=== PATIENT | female | born 1935 | race Caucasian/White ===

== ENCOUNTER 2017-11-13 12:42 | Emergency (ER) | payer OTHER ==
[~2017-11-13] VITALS: Ht 154.9 cm; Wt 80.4 kg
[2017-11-13 12:45] VITALS: TEMP 36.7; Ht 154.9 cm; Wt 80.4 kg
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
--- NOTE | 2017-11-13 13:49 | EMERGENCY ROOM VISIT NOTE ---
ED Visit Note First contact with patient: 13:02 The patient was seen and examined with Dr. Krista SARMIENTO. I agree with the history, physical and findings. Please see the note for dispositions and details.
[2017-11-13 13:56] LABS: BASO ABS # 0.06 K/uL (0-0.2); EOS % 2.2 %; EOS ABS # 0.13 K/uL (0-0.5); HEMATOCRIT 43.4 % (37-47); HEMOGLOBIN 15.5 g/dL (12.0-16.0); IG# 0.02 K/uL (0.00-0.02); LYMPH % 18.8 %; LYMPH ABS # 1.12 K/uL (1.2-3.4); MEAN CELL VOLUME 89.3 fL (80-100); MEAN CORPUSCULAR HEMOGLOBIN 31.9 pg (25-34); MEAN CORPUSCULAR HGB CONC 35.7 g/dl (32-36); MEAN PLATELET VOLUME 9.6 fL (7.4-10.4); MONO % 7.1 %; MONO ABS # 0.42 K/uL (0.11-0.59); NEUT % 70.6 %; PLATELET COUNT 227 K/uL (130-400); RED CELL DISTRIBUTION WIDTH CV 12.8 % (11.5-14.5); RED CELL DISTRIBUTION WIDTH SD 41.4 fL (36.4-46.3); WHITE BLOOD COUNT 5.95 K/uL (4.8-10.8)
--- NOTE | 2017-11-13 14:08 | DIAGNOSTIC IMAGING REPORT ---
R KNEE 3 VIEWS CLINICAL HISTORY: 82 years-old Female presenting with Knee Pain on Ambulation. TECHNIQUE: Frontal, lateral, and sunrise views of the right knee were obtained. COMPARISON: None. FINDINGS: Knee joint congruent though there is valgus alignment at the knee. Significant lateral joint space loss with near [id number] appearance and subchondral sclerosis. Tricompartmental osteophytosis. Moderate knee joint effusion. Osteopenia suspected. This limits evaluation for nondisplaced fracture. Degenerative related lateral subluxation of the patella. No acute fracture or acute malalignment. Atherosclerosis. IMPRESSION: 1. Tricompartmental degenerative changes most severe in the lateral compartment. 2. Moderate knee joint effusion. 3. Allowing for osteopenia, no acute osseous injury. Electronically signed by: Chuck Jimenez M.D. 11/13/2017 2:07 PM Dictated Date/Time: 11/13/2017 2:05 PM
[2017-11-13 14:15] LABS: CALCIUM 8.7 mg/dl (8.5-10.1); CREATININE 1.03 mg/dl (0.60-1.20); POTASSIUM 4.1 mmol/L (3.5-5.1); URIC ACID 5.6 mg/dl (2.6-7.2)
[2017-11-13 15:37] VITALS: PULSE 84; O2SAT 100
[2017-11-13 15:41] VITALS: BP 148/86
== END 2017-11-13 15:44 | disposition home or self-care (01) ==
LOC: C.EDB 12:46 → C.EDA 15:44
DX: M17.11 Unilateral primary osteoarthritis, right knee (principal)

== ENCOUNTER 2021-10-22 11:58 | Inpatient (IN) ==
[2021-10-22] MEDS ORDERED: HALOPERIDOL LACTATE 5 MG/ML 1 ML VIAL IV STA (12:07)
[2021-10-22] MEDS ORDERED: LORazepam 2 MG/1 ML VIAL IV STA (12:07)
--- NOTE | 2021-10-22 12:09 | Emergency Department Note ---
Impression & Plan Acute hyponatremia ADMIT ED Provider Note HPI: The patient is a 86-year-old female who presents the emergency department with a chief complaint of altered mental status. Patient was seen overnight after a fall, discharged home after CT imaging was negative for any acute intracranial bleeding. Per EMS report, family noted the patient to be altered when they checked on her today around 10:00 in the morning and she was still in bed. Patient has not exhibited any focal deficits on arrival but she does appear very anxious. She continues to state "I am so scared". Patient is very anxious appearing on arrival but she does ambulate her extremities without limitation. Patient is hard of hearing, on arrival she is unable to respond to most of my questions. She does not have any obvious focal deficits, she has a large contusion to the left frontal forehead area without any open wounds or lacerations. Patient is hypertensive on arrival but otherwise saturating well on room air and alert. ROS: -Neuro: Altered mental status, recent head injury *10 point review systems was conducted and is otherwise negative unless stated above *Outpatient medications and allergy history reviewed PE: General: Alert, NAD HEENT: Hematoma to the left forehead without any open wounds or lacerations Eyes: Extraocular eye movement is intact, no scleral erythema Pulmonary: Clear to auscultation bilaterally, no wheezing Cardio: Regular rate and rhythm GI: Abdomen is soft, nontender : No suprapubic tenderness MSK: No evidence of trauma or malformation of the extremities, no edema Skin: No evidence of rash Neuro: Alert, no focal deficits Psychiatric: Cooperative court recording monitor: - An order was placed for continuous cardiac monitoring - Patient was noted to be in sinus rhythm with rate of 80 EKG: Rate: 77 Rhythm: Probable sinus rhythm with some baseline artifact Intervals: Within normal limits ST changes: No ST elevation Time: 1208 Medical Decision Making: The patient is an 86-year-old female with history of hypertension, presents the emergency department with altered mental status and apparent delirium, this is in the setting of recent head injury that the patient experienced last evening, she was discharged home following negative CT imaging. On arrival here to the ED the patient is anxious appearing, she is somewhat delirious, continues to yell "I am so scared". She is unable to answer any of my questions. Patient was given a small dose of Ativan and Haldol shortly after arrival which did calm her down, IV was then established, lab work obtained, lab work shows evidence of a worsening hyponatremia at 126, she was 131 just last night. Her sister later arrives and provides further history, states the patient had an episode of vomiting last evening, she has had diminished p.o. intake. Patient does not have any abdominal pain on my exam, no tenderness to palpation, she ambulates all extremities spontaneously, CT imaging of her head does not show any evidence of any new acute intracranial injury, no intracranial bleeding. On my reassessment the patient remains hypertensive but otherwise without focal deficits and she is more calm than on presentation following the Ativan and Haldol. Unclear origin of the patient's altered mental status, possibly related to hyponatremia, also possibly postconcussive in nature given her head injury yesterday. I did discuss all the above with the patient's sister at the bedside, at this time will admit the patient for encephalopathy and hyponatremia. [facility] and the patient was admitted in stable condition for further care. Of note, urinalysis is ordered and pending. We will hold on IV fluids for further inpatient diagnostic work-up in regards to hyponatremia. Diagnosis: 1. Altered mental status 2. Delirium 3. Hyponatremia 4. Recent closed head injury Disposition: Admission Sohn Riley DO Emergency Medicine Past Med/Surg History Medical History (Updated 10/22/21 @ 13:19 by Shon Riley DO) Arthritis Hypertension No pertinent family history Surgical History (Updated 10/21/21 @ 22:53 by Trevor Odell) No pertinent past surgical history Social History Smoking Status: Never smoker Preferred Language: Ecuadorean Feels Safe at Home: Yes Allergies Allergies Allergy/AdvReac Type Severity Reaction Status Date / Time No Known Allergies Allergy Verified 10/21/21 21:06 Home Meds Home Medications Medication Instructions Recorded Confirmed lisinopril 20 mg tablet 20 mg PO DAILY 07/25/21 10/21/21 acetaminophen 500 mg tablet 1,000 mg PO DIRECTED PRN Pain 10/21/21 10/21/21 (Tylenol Extra Strength) ibuprofen 200 mg tablet 400 mg PO DIRECTED PRN Pain 10/21/21 10/21/21 Results & Data (ED) Vital Signs Vital Signs - 24 hr 10/22/21 12:19 10/22/21 12:28 10/22/21 12:28 Pulse Rate 93 H 87 Pulse Rate [Right Finger] 83 Pulse Rhythm Regular Respiratory Rate 18 20 Respiratory Effort / Characteristics Non-Labored Respiratory Depth Normal Normal Blood Pressure 193/99 H Blood Pressure [Right Arm] 193/99 H Blood Pressure Mean 130 Blood Pressure Mean [Right Arm] 130 Pulse Oximetry 99 93 94 Oxygen Delivery Method Room Air Room Air Room Air Sepsis Recent Fever Within 48 Hours No Sepsis New/Unexplained Change in Mental Status No Sepsis Action Taken by Nursing No Action Required Laboratory Data Result diagrams: 10/22/21 12:00 10/22/21 12:00 Lab Results 10/22/21 10/22/21 Range/Units 12:00 12:00 WBC 8.19 (4.8-10.8) K/ul RBC 4.57 (3.93-5.22) M/uL Hgb 14.8 (12.0-16.0) g/dl Hct 41.2 (34.1-44.9) % MCV 90.2 (80.0-100.0) fL MCH 32.4 (25.0-34.0) pg MCHC 35.9 (32.0-36.0) g/dL RDW Std Deviation 39.7 (36.4-46.3) fL RDW Coeff of Dorothy 11.9 (11.5-14.5) % Plt Count 276 (130-400) K/uL MPV 9.2 L (9.4-12.3) fL Immature Gran % (Auto) 0.4 % Neut % (Auto) 85.5 % Lymph % (Auto) 8.3 % [place] % (Auto) 4.8 % Eos % (Auto) 0.5 % Baso % (Auto) 0.5 % Neut # (Auto) 7.01 H (1.4-6.5) K/uL Lymph # (Auto) 0.68 L (1.2-3.4) K/uL [place] # (Auto) 0.39 (0.24-0.82) K/uL Eos # (Auto) 0.04 (0-0.50) K/uL Baso # (Auto) 0.04 (0-0.2) K/uL Immature Gran # (Auto) 0.03 H (0.00-0.02) K/uL Sodium 126 L (136-145) mmol/L Potassium 4.2 (3.5-5.1) mmol/L Chloride 92 L (98-107) mmol/L Carbon Dioxide 25 (21-32) mmol/L Anion Gap 9 (3-11) BUN 9 (6-23) mg/dl Creatinine 0.63 (0.6-1.2) mg/dl Est Cr Clr Drug Dosing 63.1 ml/min Est GFR ( Amer) 94.1 ml/min Est GFR (Non-Af Amer) 81.2 ml/min BUN/Creatinine Ratio 14.3 (10-20) Glucose 95 (70-99(Fasting)) mg/dl Calcium 9.3 (8.5-10.1) mg/dl Total Bilirubin 1.4 H (0.2-1.0) mg/dl AST 15 (13-39) U/L ALT 11 (7-52) U/L Alkaline Phosphatase 53 (34-104) U/L Troponin I High Sens 8.6 (0-14) pg/ml Total Protein 6.9 (6.0-8.3) gm/dl Albumin 4.3 (3.4-5.0) gm/dl Globulin 2.6 (2.5-4.0) gm/dl Albumin/Globulin Ratio 1.7 (0.9-2) Lipase 8 L (11-82) U/L Administered Medications Discontinued Medications Haloperidol Lactate (Haloperidol Lactate 5 Mg/Ml 1 Ml Vial) 2 mg IV NOW STA Stop: 10/22/21 12:08 Last Admin: 10/22/21 12:16 Dose: 2 mg Documented By: JUAN Lorazepam (Lorazepam 2 Mg/1 Ml Vial) 0.5 mg IV NOW STA; Protocol Stop: 10/22/21 12:08 Last Admin: 10/22/21 12:16 Dose: 0.5 mg Documented By: JUAN Imaging Data Radiologist's Impression: Chest X-Ray 10/22/21 12:06 XR chest 1V portable HISTORY: 86 years-old Female Chest Pain acute chest trauma status post fall COMPARISON: Chest radiograph 07/25/2021, CTA chest 07/25/2021 TECHNIQUE: Portable AP view of the chest FINDINGS: Cardiac silhouette is enlarged. Medial lung apices are obscured by the patient's chin. No pneumothorax, large pleural effusion or overt pulmonary edema. Mild interstitial coarsening of the lung bases is likely atelectatic. Degenerative changes of the shoulders and spine. Subcentimeter loose body of the left subscapularis recess. IMPRESSION: No acute process. ACT 112: Negative or not required by law. The above report was generated using voice recognition software. It may contain grammatical, syntax or spelling errors. Electronically signed by: Kushal Gutiérrez M.D. 10/22/2021 12:[address] 10/22/21 12:[address] DOSE: 537.48 mGy.cm HISTORY: Altered mental status. Confusion. Fall. TECHNIQUE: Multiaxial CT images of the head were performed without the use of intravenous contrast. Automated exposure control was utilized for this study. A dose lowering technique was utilized adhering to the principles of ALARA. Comparison: Head CT 10/21/2021. Findings: The paranasal sinuses and mastoid air cells are clear. The calvarium and skull base are intact. There is no mass, hematoma, midline shift, acute infarct. White matter hypodensity is nonspecific but suggestive of microvascular ischemic change. The ventricles and sulci demonstrate mild age-related involutional changes. Frontal scalp swelling. Mild motion artifact. Impression: 1. No acute intracranial abnormality. Atrophy and microvascular ischemic changes. 2. Frontal scalp swelling. ACT 112: Negative or not required by law. Electronically signed by: Bobby Moreno M.D. 10/22/2021 12:42 PM Discharge Plan Visit Data Chief Complaint: Fall Stated Complaint: FALL, VISUAL CHANGES, ED Provider: Shon Riley Discharge Problem: Acute hyponatremia Patient Disposition: Admitted As Inpatient Forms Stand Alone Forms: [facility] Prescriptions Prescriptions: No Action lisinopril 20 mg tablet 20 mg PO DAILY acetaminophen [Tylenol Extra Strength] 500 mg Tablet 1,000 mg PO DIRECTED PRN (Reason: Pain) ibuprofen 200 mg Tablet 400 mg PO DIRECTED PRN (Reason: Pain) Referrals Referrals: Zaida Graves PA-C [Primary Care Provider] -
[2021-10-22 12:23] LABS: Basophils # (auto) 0.04 K/uL (0-0.2); Basophils % (auto) 0.5 %; Eosinophils # (auto) 0.04 K/uL (0-0.50); Eosinophils % (auto) 0.5 %; Hematocrit (blood only) 41.2 % (34.1-44.9); Hemoglobin 14.8 g/dl (12.0-16.0); Immature Granulocytes # (auto) 0.03 K/uL (0.00-0.02); Immature Granulocytes % (auto) 0.4 %; Lymphocytes # (auto) 0.68 K/uL (1.2-3.4); Lymphocytes % (auto) 8.3 %; Mean Corpuscular Hemoglobin 32.4 pg (25.0-34.0); Mean Corpuscular Hgb Conc 35.9 g/dL (32.0-36.0); Mean Corpuscular Volume 90.2 fL (80.0-100.0); Mean Platelet Volume 9.2 fL (9.4-12.3); Monocytes # (auto) 0.39 K/uL (0.24-0.82); Monocytes % (auto) 4.8 %; Neutrophils # (auto) 7.01 K/uL (1.4-6.5); Neutrophils % (auto) 85.5 %; Platelet Count 276 K/uL (130-400); RDW Coefficient of Variation 11.9 % (11.5-14.5); RDW Standard Deviation 39.7 fL (36.4-46.3); Red Blood Count 4.57 M/uL (3.93-5.22); White Blood Count 8.19 K/ul (4.8-10.8)
--- NOTE | 2021-10-22 12:41 | XRay Report ---
XR chest 1V portable HISTORY: 86 years-old Female Chest Pain acute chest trauma status post fall COMPARISON: Chest radiograph 07/25/2021, CTA chest 07/25/2021 TECHNIQUE: Portable AP view of the chest FINDINGS: Cardiac silhouette is enlarged. Medial lung apices are obscured by the patient's chin. No pneumothora x, large pleural effusion or overt pulmonary edema. Mild interstitial coarsening of the lung bases is likely atelectatic. Degenerative changes of the shoulders and spine. Subcentimeter loose body of the left subscapularis recess. IMPRESSION: No acute process. ACT 112: Negative or not required by law. The above report was generated using voice recognition software. It may contain grammatical, syntax o r spelling errors. Electronically signed by: Kushal Gutiérrez M.D. 10/22/2021 12:38 PM
--- NOTE | 2021-10-22 12:43 | CT Scan Report ---
HEAD CT NONCONTRAST CT DOSE: 537.48 mGy.cm HISTORY: Altered mental status. Confusion. Fall. TECHNIQUE: Multiaxial CT images of the head were performed without the use of intravenous contrast. A utomated exposure control was utilized for this study. A dose lowering technique was utilized adheri ng to the principles of ALARA. Comparison: Head CT 10/21/2021. Findings: The paranasal sinuses and mastoid air cells are clear. The calvarium and skull base are int act. There is no mass, hematoma, midline shift, acute infarct. White matter hypodensity is nonspecifi c but suggestive of microvascular ischemic change. The ventricles and sulci demonstrate mild age-rela yusra involutional changes. Frontal scalp swelling. Mild motion artifact. Impression: 1. No acute intracranial abnormality. Atrophy and microvascular ischemic changes. 2. Frontal scalp swelling. ACT 112: Negative or not required by law. Electronically signed by: oBbby Moreno M.D. 10/22/2021 12:42 PM
[2021-10-22 12:44] LABS: Albumin Globulin Ratio 1.7 (0.9-2); Albumin Level 4.3 gm/dl (3.4-5.0); BUN Creatinine Ratio 14.3 (10-20); Bilirubin,Total 1.4 mg/dl (0.2-1.0); Calcium 9.3 mg/dl (8.5-10.1); Creatinine Clr Calc Pharmacy 63.1 ml/min; Est GFR (African American) 94.1 ml/min; Est GFR (Non-African American) 81.2 ml/min; Globulin 2.6 gm/dl (2.5-4.0); Potassium 4.2 mmol/L (3.5-5.1); Total Protein 6.9 gm/dl (6.0-8.3)
[2021-10-22 12:48] LABS: Troponin I High Sensitivity 8.6 pg/ml (0-14)
[2021-10-22 13:44] LABS: Appearance Urine Cloudy (Clear); Bacteria Urine Automated Negative (Negative); Bilirubin Urine Negative (Negative); Blood Urine Trace (Negative); Color Urine Yellow; Epithelial Cell Urine Auto >30 /lpf (0-5); Glucose Urine UA Negative (Negative); Ketones Urine 2+ (Negative); Leukocyte Esterase Urine 1+ (Negative); Nitrite Urine Negative (Negative); Protein Urine 1+ (Negative); Specific Gravity Urine 1.022 (1.000-1.030); Urobilinogen Urine Negative (Negative)
[2021-10-22] MEDS ORDERED: hydrALAZINE HCL 20 MG/ML VIAL IV PRN (14:06)
[2021-10-22] MEDS ORDERED: SODIUM CHLORIDE 0.9% 1000ML 1,000 ML IV SCH ×2 (14:15→21:30)
[2021-10-22 14:26] LABS: RBC Urine Automated 0-4 /hpf (0-4)
--- NOTE | 2021-10-22 14:54 | CT Scan Report ---
CT lumbar spine wo con CLINICAL HISTORY: fall, back pain COMPARISON STUDY: No previous studies for comparison. CT DOSE: 1835.71 mGy.cm TECHNIQUE: Standard CT of the Lumbar Spine was performed without IV contrast. A dose lowering techni que was utilized adhering to the principles of ALARA. FINDINGS: Bones: The bones are osteopenic. There is minimal old anterior wedge deformity of T12. There is no ev idence for an acute fracture or malalignment. There is degenerative grade 1/4 spondylolisthesis of L4 on L5 and L5 on S1. The heights of the lumbar vertebral bodies are maintained. Disc spaces: There is moderate to marked disc space narrowing seen from T12 through S1 with endplate sclerosis, osteophyte formation and vacuum disc phenomena present. Bulging annuli and hypertrophic fa cet joint disease are present at the lower 3 disc space levels with segmental central canal and bilat eral foraminal stenosis present, most marked at L4-5. Facet joints: Hypertrophic facet joint disease is seen bilaterally. The sacroiliac joints are intact bilaterally. Soft tissues: The prevertebral soft tissues are within normal limits. IMPRESSION: 1. Osteopenia with old T12 wedge deformity. 2. No acute fracture. 3. 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 ACT 112: Negative or not required by law. Electronically signed by: Mikhail Prieto M.D. 10/22/2021 2:52 PM
--- NOTE | 2021-10-22 15:00 | CT Scan Report ---
CT thoracic spine wo con CLINICAL HISTORY: fall, back pain COMPARISON STUDY: No previous studies for comparison. CT DOSE: TECHNIQUE: Standard CT of the Thoracic Spine was performed without IV contrast. A dose lowering tech nique was utilized adhering to the principles of ALARA. FINDINGS: Bones: The bones are osteopenic. Minimal remote anterior wedge deformities are present involving T10, T11 and T12. There is no evidence for an acute fracture or malalignment. The heights of the remainin g thoracic vertebral bodies are maintained. The vertebral bodies are in anatomic alignment. Disc spaces: There is moderate to marked disc space narrowing throughout the thoracic spine with mini mal endplate sclerosis and osteophyte formation. Pedicles::The pedicles are intact bilaterally. Soft tissues: The paraspinal soft tissues are within normal limits. IMPRESSION: 1. Osteopenia with no acute osseous pathology. 2. Old anterior wedge deformities of T10-T12. 3. Moderate to marked degenerative disc disease. ACT 112: Negative or not required by law. Electronically signed by: Mikhail Prieto M.D. 10/22/2021 2:59 PM
--- NOTE | 2021-10-22 15:04 | CT Scan Report ---
CT cervical spine wo con CLINICAL HISTORY: fall, neck pain COMPARISON STUDY: No previous studies for comparison. CT DOSE: TECHNIQUE: Standard CT of the Cervical Spine was performed without IV contrast. A dose lowering adam hnique was utilized adhering to the principles of ALARA. FINDINGS: Bones: The bones are osteopenic. There is no evidence for an acute fracture or malalignment. There is minimal degenerative anterolisthesis of C4 on C5, C5 on C6 and C6 on C7 by 2 to 3 mm. The heights of the vertebral bodies are maintained. The remaining cervical vertebral bodies are in anatomic alignme nt. The odontoid is intact. Degenerative changes are seen at the atlantoaxial articulation. Disc spaces: There is moderate to marked disc space narrowing present from C3 through C7 with endplat e sclerosis and osteophyte formation present. Apophyseal joints: Extensive degenerative apophyseal joint disease is seen throughout the cervical sp ine bilaterally. Soft tissues: The prevertebral soft tissues are within normal limits. Carotid artery calcification is present. IMPRESSION: 1. Osteopenia with no acute osseous pathology. 2. Degenerative disc and degenerative joint disease with degenerative anterolisthesis present. ACT 112: Negative or not required by law. Electronically signed by: Mikhail Prieto M.D. 10/22/2021 3:02 PM
--- NOTE | 2021-10-22 15:36 | History & Physical Report ---
Date of Service October 22, 2021 Assessment & Plan (1) AMS (altered mental status): Plan: Admit to tele Patient presenting from home with increased confusion. Seen in ED yesterday after a mechanical fall. Head and cervical spine CT unremarkable for acute findings. Due to reports of back pain and ongoing neck pain, CTs C-spine, thoracic, lumbar were obtained and are negative for acute findings In the ED today, patient found to be hyponatremic. AMS likely multifactorial due to hyponatremia and concussion. (2) Hyponatremia: Plan: Na+ 126 Likely due to poor p.o. intake and vomiting Start NSS @ 80/hr Serial BMPs, low threshold for nephro consult (3) CHI (closed head injury): Plan: S/p mechanical fall on 10/21 Has frontal scalp swelling and mild ecchymosis Head CT today negative for acute findings Concussion likely contributing to AMS (4) Hypertension: Plan: BP elevated, likely situational As needed hydralazine ordered for now Continue home dose lisinopril (5) Abnormal urinalysis: Plan: UA is positive for leukocyte Estrace and WBC however negative for nitrates and bacteria. > 30 epi cells noted Likely contaminant Afebrile, no leukocytosis Follow culture (6) DVT prophylaxis: Plan: SQ Lovenox Plan Attending Addendum: care coordinated with TRU triplett please refer to her notes for full details, I agree with her notes patient seen and examined, records reviewed by myself as well on exam, patient seen sitting up in bed, being assisted with eating a sandwich Alert, very hard of hearing, seems to be disoriented Follows simple commands no other symptoms VS noted and reviewed oriented x 1, not in distress, speaks in sentences with no effort nor accessory muscle use Head-positive large frontal hematoma normal rate, regular rhythm, no murmurs clear breath sounds bilaterally non distended, soft, nontender no bipedal edema, erythema, warmth no neuro deficits WBC 8.1 Hg 14[address] head:1. No acute intracranial abnormality. Atrophy and microvascular ischemic changes. 2. Frontal scalp swelling. ASSESSMENT AND PLAN Acute metabolic encephalopathy, multifactorial Secondary to hyponatremia, dehydration, possible concussion status post mechanical fall CT head: No acute process, bleeding Sodium 126, serum osm 265--> likely hypovolemic hyponatremia, IV NSS ordered, repeat sodium at 8 PM Chest x-ray: No pneumonia UA: No UTI Continue gentle IV NSS, monitor closely PT and OT evaluation other diagnoses and plan of care as per TRU triplett's notes Abhilash Beauchamp MD History of Present Illness Chief Complaint: Confusion Primary Care Provider: Zaida Graves 86-year-old female with PMH HTN, other problems below who presents to the ED for evaluation of confusion. Patient seen in the ED yesterday after having a mechanical fall. Head CT and cervical spine CT negative for acute findings. Patient was discharged home. Patient's sister is at the bedside who provides history. Sister states that patient spent the night at her house last night. This morning, patient was increasingly confused and complaining of head and neck pain. Patient was then brought back to the ED for further evaluation. Patient has not had anything to eat since yesterday at lunchtime. This morning, she took a sip of water with her lisinopril and had vomiting after. Additional history and review of systems is unobtainable from the patient due to current altered mental status. In the ED, repeat head CT is negative for acute findings. Labs show Na+ 126. UA is abnormal but does not strongly suggest UTI. Patient received IV Haldol and IV lorazepam in the ED. Allergies Allergy/AdvReac Type Severity Reaction Status Date / Time No Known Allergies Allergy Verified 10/21/21 21:06 Home Medications Medication Instructions Recorded Confirmed Type acetaminophen 500 mg tablet 1,000 mg PO DIRECTED PRN Pain 10/21/21 10/22/21 History (Tylenol Extra Strength) ibuprofen 200 mg tablet 400 mg PO DIRECTED PRN Pain 10/21/21 10/22/21 History lisinopril 40 mg tablet 40 mg PO DAILY 10/22/21 10/22/21 History Past Med/Surg History Medical History (Updated 10/22/21 @ 15:26 by TRU Russell) Arthritis Hypertension Surgical History (Updated 10/22/21 @ 15:10 by TRU Russell) History of knee surgery Family History Other Family history unobtainable Social History Smoking Status: Never smoker Hx Alcohol Use: Yes Alcohol type: beer Hx Substance Use: No Preferred Language: Yi Communication Ability: Impaired Communication Ability Comment: New increased hearing loss, blurred vision from recent fall. General [employer] Required: No Beliefs That Will Affect Care: None Current Living Situation: Alone Feels Safe at Home: Yes Safety Concerns: Feels Safe At This Time Assistive Devices: Denture - Upper, Denture - Lower and Walker Review of Systems Review of Systems: Unobtainable due to cognitive status Physical Exam Constitutional: WD/WN, vitals as above Eyes: PERRL, conjunctivae normal, anicteric sclerae ENMT: external ear and nose normal, oropharynx normal Respiratory: normal respiratory effort, lungs clear to auscultation Cardiovascular: Rate/Rhythm: regular rate and regular rhythm Vessels: normal peripheral pulses Extremities: no edema Gastrointestinal (Abdomen): normal bowel sounds, soft, nontender, no hepatosplenomegaly Musculoskeletal: no cyanosis or clubbing, extremities motor strength 5/5 Head/Neck/Chest: + head abnormal to inspection (Frontal scalp swelling and mild ecchymosis present) Skin: no rashes, warm and dry Neurologic: PERRL, EOMI, accommodation nl, no face palsy, no dysarthria moves all extremities; no focal motor deficits Psychiatric: Orientation: alert and oriented to person; + not oriented to place and + not oriented to time Results & Data Results & Data ([facility]) Vital Signs (Past 12 Hours) Vital Signs Pulse Pulse Resp BP BP Pulse Ox O2 Del Method 10/22/21 14:31 81 16 178/87 H 93 Room Air 10/22/21 12:28 83 20 193/99 H 94 Room Air 10/22/21 12:28 87 93 Room Air 10/22/21 12:19 93 H 18 193/99 H 99 Room Air Laboratory Results Short CBC 10/22/21 Range/Units 12:00 WBC 8.19 (4.8-10.8) K/ul Hgb 14.8 (12.0-16.0) g/dl Hct 41.2 (34.1-44.9) % Plt Count 276 (130-400) K/uL BMP 10/22/21 12:00 Sodium 126 L Potassium 4.2 Chloride 92 L Carbon Dioxide 25 BUN 9 Creatinine 0.63 Glucose 95 Calcium 9.3 Liver Function 10/22/21 Range/Units 12:00 Total Bilirubin 1.4 H (0.2-1.0) mg/dl AST 15 (13-39) U/L ALT 11 (7-52) U/L Alkaline Phosphatase 53 (34-104) U/L Albumin 4.3 (3.4-5.0) gm/dl Urine 10/22/21 Range/Units 12:55 Urine Color Yellow Urine Appearance Cloudy A (Clear) Urine pH 6.0 (4.5-7.5) Ur Specific [place] 1.022 (1.000-1.030) Urine Protein 1+ H (Negative) Urine Glucose (UA) Negative (Negative) Diagnostic Findings Chest X-Ray 10/22/21 12:06 XR chest 1V portable HISTORY: 86 years-old Female Chest Pain acute chest trauma status post fall COMPARISON: Chest radiograph 07/25/2021, CTA chest 07/25/2021 TECHNIQUE: Portable AP view of the chest FINDINGS: Cardiac silhouette is enlarged. Medial lung apices are obscured by the patient's chin. No pneumothorax, large pleural effusion or overt pulmonary edema. Mild interstitial coarsening of the lung bases is likely atelectatic. Degenerative changes of the shoulders and spine. Subcentimeter loose body of the left subscapularis recess. IMPRESSION: No acute process. ACT 112: Negative or not required by law. The above report was generated using voice recognition software. It may contain grammatical, syntax or spelling errors. Electronically signed by: Kushal Gutiérrez M.D. 10/22/2021 12:[address] 10/22/21 12:[address] DOSE: 537.48 mGy.cm HISTORY: Altered mental status. Confusion. Fall. TECHNIQUE: Multiaxial CT images of the head were performed without the use of intravenous contrast. Automated exposure control was utilized for this study. A dose lowering technique was utilized adhering to the principles of ALARA. Comparison: Head CT 10/21/2021. Findings: The paranasal sinuses and mastoid air cells are clear. The calvarium and skull base are intact. There is no mass, hematoma, midline shift, acute infarct. White matter hypodensity is nonspecific but suggestive of microvascular ischemic change. The ventricles and sulci demonstrate mild age-related involutional changes. Frontal scalp swelling. Mild motion artifact. Impression: 1. No acute intracranial abnormality. Atrophy and microvascular ischemic changes. 2. Frontal scalp swelling. ACT 112: Negative or not required by law. Electronically signed by: Bobby Moreno M.D. 10/22/2021 12:[address] 10/22/21 14:12 CT cervical spine wo con CLINICAL HISTORY: fall, neck pain COMPARISON STUDY: No previous studies for comparison. CT DOSE: TECHNIQUE: Standard CT of the Cervical Spine was performed without IV contrast. A dose lowering technique was utilized adhering to the principles of ALARA. FINDINGS: Bones: The bones are osteopenic. There is no evidence for an acute fracture or malalignment. There is minimal degenerative anterolisthesis of C4 on C5, C5 on C6 and C6 on C7 by 2 to 3 mm. The heights of the vertebral bodies are maintained. The remaining cervical vertebral bodies are in anatomic alignment. The odontoid is intact. Degenerative changes are seen at the atlantoaxial articulation. Disc spaces: There is moderate to marked disc space narrowing present from C3 through C7 with endplate sclerosis and osteophyte formation present. Apophyseal joints: Extensive degenerative apophyseal joint disease is seen throughout the cervical spine bilaterally. Soft tissues: The prevertebral soft tissues are within normal limits. Carotid artery calcification is present. IMPRESSION: 1. Osteopenia with no acute osseous pathology. 2. Degenerative disc and degenerative joint disease with degenerative anterolisthesis present. ACT 112: Negative or not required by law. Electronically signed by: Mikhail Prieto M.D. 10/22/2021 3:[address] 10/22/21 14:12 CT lumbar spine wo con CLINICAL HISTORY: fall, back pain COMPARISON STUDY: No previous studies for comparison. CT DOSE: 1835.71 mGy.cm TECHNIQUE: Standard CT of the Lumbar Spine was performed without IV contrast. A dose lowering technique was utilized adhering to the principles of ALARA. FINDINGS: Bones: The bones are osteopenic. There is minimal old anterior wedge deformity of T12. There is no evidence for an acute fracture or malalignment. There is degenerative grade 1/4 spondylolisthesis of L4 on L5 and L5 on S1. The heights of the lumbar vertebral bodies are maintained. Disc spaces: There is moderate to marked disc space narrowing seen from T12 through S1 with endplate sclerosis, osteophyte formation and vacuum disc phenomena present. Bulging annuli and hypertrophic facet joint disease are present at the lower 3 disc space levels with segmental central canal and bilateral foraminal stenosis present, most marked at L4-5. Facet joints: Hypertrophic facet joint disease is seen bilaterally. The sacroiliac joints are intact bilaterally. Soft tissues: The prevertebral soft tissues are within normal limits. IMPRESSION: 1. Osteopenia with old T12 wedge deformity. 2. No acute fracture. 3. 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 ACT 112: Negative or not required by law. Electronically signed by: Mikhail Prieto M.D. 10/22/2021 2:[address] 10/22/21 14:12 CT thoracic spine wo con CLINICAL HISTORY: fall, back pain COMPARISON STUDY: No previous studies for comparison. CT DOSE: TECHNIQUE: Standard CT of the Thoracic Spine was performed without IV contrast. A dose lowering technique was utilized adhering to the principles of ALARA. FINDINGS: Bones: The bones are osteopenic. Minimal remote anterior wedge deformities are present involving T10, T11 and T12. There is no evidence for an acute fracture or malalignment. The heights of the remaining thoracic vertebral bodies are maintained. The vertebral bodies are in anatomic alignment. Disc spaces: There is moderate to marked disc space narrowing throughout the thoracic spine with minimal endplate sclerosis and osteophyte formation. Pedicles::The pedicles are intact bilaterally. Soft tissues: The paraspinal soft tissues are within normal limits. IMPRESSION: 1. Osteopenia with no acute osseous pathology. 2. Old anterior wedge deformities of T10-T12. 3. Moderate to marked degenerative disc disease. ACT 112: Negative or not required by law. Electronically signed by: Mikhail Prieto M.D. 10/22/2021 2:59 PM Code Status & VTE Plan VTE Prophylaxis Plan VTE Prophylaxis will be ordered: Yes (1) CHI (closed head injury) Encounter type: initial encounter Qualified Code(s): S09.90XA - Unspecified injury of head, initial encounter (2) Hypertension Hypertension type: unspecified Qualified Code(s): I10 - Essential (primary) hypertension
--- NOTE | 2021-10-22 15:59 | Electrocardiogram Report ---
Test Reason : Blood Pressure : / mmHG Vent. Rate : 077 BPM Atrial Rate : 077 BPM P-R Int : 000 ms QRS Dur : 078 ms QT Int : 392 ms P-R-T Axes : 000 -24 004 degrees QTc Int : 443 ms Poor data quality, interpretation may be adversely affected Sinus rhythm Minimal voltage criteria for LVH, may be normal variant Abnormal ECG When compared with ECG of 21-OCT-2021 19:36, No significant change Confirmed by Juan Jon ([id number]) on 10/22/2021 3:59:09 PM Referred By: REFERRED SELF Confirmed By:Juan Jon
[2021-10-22] MEDS ORDERED: ACETAMINOPHEN 325 MG TAB PO PRN (17:13)
[2021-10-22] MEDS ORDERED: PNEUMOCOCCAL POLYSACCHARIDES 25 MCG/0.5 ML VIAL/SYR IM ONE (17:33)
[2021-10-22] MEDS ORDERED: ENOXAPARIN INJ 40 MG/0.4 ML SYR SQ SCH (18:00)
[2021-10-22 20:35] LABS: BUN Creatinine Ratio 16.9 (10-20); Calcium 9.2 mg/dl (8.5-10.1); Creatinine Clr Calc Pharmacy 69.5 ml/min; Est GFR (African American) 96.2 ml/min; Potassium 4.1 mmol/L (3.5-5.1)
[2021-10-22] MEDS ORDERED: FUROSEMIDE INJ 20 MG/2 ML VIAL IV ONE (21:21)
[2021-10-23] MEDS ORDERED: MELATONIN 3 MG TAB PO PRN (01:53)
[2021-10-23] MEDS ORDERED: OLANZapine 10 MG/2.1 ML SDV IM STA ×2 (01:54→02:54)
[2021-10-23] MEDS ORDERED: OLANZapine 10 MG/2.1 ML SDV IM PRN ×2 (03:20→05:40)
[2021-10-23 04:22] LABS: Hematocrit (blood only) 39.3 % (34.1-44.9); Hemoglobin 14.3 g/dl (12.0-16.0); Mean Corpuscular Hemoglobin 32.9 pg (25.0-34.0); Mean Corpuscular Hgb Conc 36.4 g/dL (32.0-36.0); Mean Corpuscular Volume 90.3 fL (80.0-100.0); Platelet Count 252 K/uL (130-400); RDW Coefficient of Variation 11.8 % (11.5-14.5); RDW Standard Deviation 39.2 fL (36.4-46.3); Red Blood Count 4.35 M/uL (3.93-5.22); White Blood Count 9.23 K/ul (4.8-10.8)
[2021-10-23 04:42] LABS: BUN Creatinine Ratio 11.8 (10-20); Calcium 8.8 mg/dl (8.5-10.1); Creatinine Clr Calc Pharmacy 60.3 ml/min; Est GFR (African American) 91.8 ml/min; Est GFR (Non-African American) 79.2 ml/min
[2021-10-23] MEDS ORDERED: LEVALBUTEROL 1.25MG/0.5ML NEB INH STA (05:39)
[2021-10-23] MEDS ORDERED: XOPENEX/ATROVENT 1.25mg/0.5MG NEB COMBO NEB STA (05:39)
[2021-10-23] MEDS ORDERED: IPRATROPIUM BROMIDE NEB SOLN 0.02% 2.5 ML VIAL INH STA (05:39)
--- NOTE | 2021-10-23 05:41 | Communication Note ---
Date of Service: October 23, 2021 2 AM Patient agitated, trying to get out of bed, biting hand/aggressive towards staff Zyprexa as needed agitation 545AM Transient unresponsiveness post bilious emesis. Noisy respiration noted, concern for aspiration as per RN. O2 sats 97 on room air Code purple called. PPE Obtunded, morbidly obese Frontal hematoma expiratory wheezes Chest x-ray as per my interpretation: Elevated right hemidiaphragm, atelectasis, interstitial infiltrates AP Aspiration pneumonia ? Possible UTI Zosyn Nebs 1 dose and wheezing Aspiration precautions, swallow eval 645 AM Transient bradycardia improved with suctioning, decreased responsiveness as per RN, occasional apneic events O2 sats 80s on room air AP Worsening encephalopathy Respiratory failure, aspiration event rule out hypercapnia hx head trauma Supplemental O2 Baseline ABG Solu-Medrol [address] head once medically stable Hold Lovenox subcu for now until follow-up CT head results available. Patient sister updated of developments over the phone.
[2021-10-23] MEDS ORDERED: SODIUM CHLORIDE 0.9% 1000ML 1,000 ML IV SCH (05:45)
[2021-10-23] MEDS ORDERED: PIPERACILLIN/TAZOBACTAM 4.5 GM in DEXTROSE 5% 100 ML IV ONE (06:00)
[2021-10-23] MEDS ORDERED: methylPREDNISolone 40 MG in SYRINGE 0 ML IV STA (07:21)
[2021-10-23] MEDS: MAGNESIUM SULFATE / D5W 1 GM/100 ML BAG IV SCH ×2 (07:51→10:00)
[2021-10-23 08:26] LABS: Base Excess ABG 1.2 mEq/L (-9-1.8); HCO3 ABG 21 mmol/L (19-24); Oxygen Saturation ABG > 100.0 % (90-95); PCO2 ABG 22 mmHg (35-46); PO2 ABG 141 mmHg (80-95)
--- NOTE | 2021-10-23 08:36 | XRay Report ---
XR chest 1V portable HISTORY: cough COMPARISON: Chest 10/22/2021. FINDINGS: There are low lung volumes. Mild interstitial thickening at the lung bases persists. This i s likely chronic. No pneumothorax. No pleural effusions. The heart is mildly enlarged. This remains u nchanged. No evidence for pulmonary edema. No new focal lung consolidations to suggest pneumonia. IMPRESSION: No significant change compared to the prior study. No acute process. ACT 112: Negative or not required by law. Electronically signed by: Bobby Moreno M.D. 10/23/2021 8:32 AM
--- NOTE | 2021-10-23 08:39 | CT Scan Report ---
CT OF THE HEAD WITHOUT CONTRAST CLINICAL HISTORY: Altered mental status. Head trauma. COMPARISON STUDY: Head CT October 22, 2019. Head CT October 22, 2021. CT DOSE: 720.95 mGycm TECHNIQUE: Helical axial images of the head were obtained without IV contrast. Automated exposure con trol was utilized for the study. A dose lowering technique was utilized adhering to the principles o f ALARA. FINDINGS: This study is mildly compromised by motion artifact. Left frontal scalp contusion is again noted. White matter hypodensities favor small vessel disease. No acute intracranial hemorrhage, midli ne shift or mass effect is present. The ventricular system is unremarkable. The basal cisterns are pa tent. No extra-axial collections are present. There are no findings to suggest acute dural sinus thro mbosis or acute territorial infarct. No significant calvarial abnormalities are present. Sphenoid sin us mucosal thickening is present. IMPRESSION: No acute intracranial findings. ACT 112: Negative or not required by law. Electronically signed by: Guille Grossman M.D. 10/23/2021 8:37 AM
[2021-10-23] MEDS ORDERED: MAGNESIUM SULFATE / D5W 1 GM/100 ML BAG IV ONE (08:45)
[2021-10-23] MEDS ORDERED: lisinopril 40 MG TAB PO SCH (09:00)
[2021-10-23 09:36] LABS: Allen Test Pos (Pos)
[2021-10-23 09:37] LABS: pH ABG 7.59 (7.35-7.45)
--- NOTE | 2021-10-23 09:45 | Electrocardiogram Report ---
Test Reason : Blood Pressure : / mmHG Vent. Rate : 046 BPM Atrial Rate : 047 BPM P-R Int : 000 ms QRS Dur : 096 ms QT Int : 508 ms P-R-T Axes : 051 -12 003 degrees QTc Int : 444 ms Sinus bradycardia with marked first degree A-V block Abnormal ECG When compared with ECG of 22-OCT-2021 12:08, Vent. rate has decreased by 30 bpm [place] interval much longer Confirmed by Geovany Moran ([id number]) on 10/23/2021 9:45:25 AM Referred By: REFERRED SELF Confirmed By:Geovany Moran
[2021-10-23 09:46] LABS: BUN Creatinine Ratio 12.3 (10-20); Calcium 8.8 mg/dl (8.5-10.1); Creatinine Clr Calc Pharmacy 54.9 ml/min; Est GFR (African American) 86.4 ml/min; Est GFR (Non-African American) 74.6 ml/min; Potassium 3.3 mmol/L (3.5-5.1); Troponin I High Sensitivity 10.8 pg/ml (0-14)
--- NOTE | 2021-10-23 10:15 | Pulmonary Consultation ---
Date of Consultation October 23, 2021 Assessment & Plan (1) Respiratory alkalosis: (2) AMS (altered mental status): (3) Hyponatremia: Plan Chest x-ray 10/23/2021 personally reviewed: Portable film, fair inspiratory effort, bilateral costophrenic and cardiophrenic angles are clean, increased cardiac silhouette. No clear lung infiltrate appreciated --Acute hypoxic respiratory failure with metabolic alkalosis Chest x-ray does not show any clear infiltrate ABG 7.59/22/141 on 5 L nasal cannula, AA gradient around 100 based on this ABG There was a-a gradient on the ABG but at the time of examination patient was saturating 98% on 1 L. The possibility of pulmonary embolism is low. -- Altered mental status I think this is multifactorial Patient is restless agitation was most likely from delirium, she was given Zyprexa and haloperidol which likely resulted in the somnolent state which she is in right now Patient is mildly hyponatremic. I do not think this is playing a role in her mental status issues Ammonia within normal limit, CT head negative x2 TSH has been ordered, followed up Plan: Patient was saturating 98% on 4 L nasal cannula at time of examination While examination I was gradually able to titrated down to 2 L when she was still saturating 98% She was sleeping. Not in any acute distress with heart rate in the 73 I think this is most likely effect of Zyprexa which is still working in an 86-y ear-old female. Patient is not in any respiratory distress. She is able to maintain her airway right now. No indication to escalate care/intubate. Would recommend to gradually wait and the hope for the Zyprexa to wear off. Once that wears off I do think patient is again going to get restless and a gitated given that she is in a new environment and cannot see/hear. Patient is afebrile but if there is any concern for meningitis, LP could be considered. Case was discussed with Dr. Elias Please note the above document was generated using voice recognition software. It may contain grammatical, syntax or spelling errors.Any formal questions or concerns about the content, text or information contained within the body of this dictation should be directly addressed to the provider for clarification. History of Present Illness Attending Physician: Shira Elias MD History of Present Illness 86-year-old female presented to hospital with confusion, Patient had a mechanical fall a day prior to presentation. Past medical history: Hypertension Patient was found to be in respiratory distress and thus the reason pulmonary were consulted Overnight patient was very agitated, biting at the nurses. Trying to get out of the bed She was given Zyprexa x2 and a dose of haloperidol Today in the morning she had an episode of an emesis. There was a possibility that she might have aspirated She was on nonrebreather initially which was gradually titrated down to 5 L nasal cannula. Pulmonary were consulted for respiratory alkalosis and persistent altered mental status At the time of examination patient was lying comfortably on the bed. She was actually sleeping and snoring. Her saturation was 98% on 5 L. I gradually went down to 2 L and she was still able to maintain a saturation 98%. Her heart rate was in the 73. MEHREEN Arroyo was also at bedside. Allergies Allergy/AdvReac Type Severity Reaction Status Date / Time No Known Allergies Allergy Verified 10/21/21 21:06 Home Medications Medication Instructions Recorded Confirmed Type acetaminophen 500 mg tablet 1,000 mg PO DIRECTED PRN Pain 10/21/21 10/22/21 History (Tylenol Extra Strength) ibuprofen 200 mg tablet 400 mg PO DIRECTED PRN Pain 10/21/21 10/22/21 History lisinopril 40 mg tablet 40 mg PO DAILY 10/22/21 10/22/21 History Patient History Medical History (Updated 10/23/21 @ 10:12 by Samantha Aguirre MD) Arthritis Hypertension Surgical History (Updated 10/22/21 @ 15:10 by TRU Russell) History of knee surgery Family History Other Family history unobtainable Social History Smoking Status: Never smoker Hx Alcohol Use: Yes Alcohol type: beer Hx Substance Use: No Preferred Language: [place] Communication Ability: Impaired Communication Ability Comment: New increased hearing loss, blurred vision from recent fall. Corporate Development Manager Required: No Beliefs That Will Affect Care: None Current Living Situation: Alone Feels Safe at Home: Yes Safety Concerns: Feels Safe At This Time Assistive Devices: Walker Review of Systems Review of Systems: All systems reviewed & are unremarkable except as noted in Subjective and Unobtainable due to mental health condition Physical Exam Physical Exam: Constitutional: No acute distress HEENT: Mild frontal scalp swelling and ecchymosis. Respiratory system: Decreased air entry bilaterally, no wheeze, no rhonchi, no crackles CVS: S1-S2 positive, no murmurs or gallops Abdomen: Soft, nontender, nondistended, positive bowel sounds x4 Extremities: +2 pulses bilaterally radialis/ dorsalis pedis, no cyanosis, no edema, ecchymosis appreciated in bilateral dorsal surface of the upper extremity Neuro: Somnolent Psych: Unable to assess G/U: No Agrawal Skin: no rashes, warm and dry Lymphatic: no cervical or axillary lymphadenopathy Results & Data Results & Data ([facility]) Vital Signs (Past 12 Hours) Vital Signs Temp Pulse Pulse Resp BP Pulse Ox O2 Del Method 10/23/21 09:52 66 10/23/21 06:08 78 24 92 Room Air 10/23/21 05:30 93 H 22 97 Room Air 10/23/21 00:00 109 H 10/23/21 03:51 37.1 C 95 H 26 H 172/75 H 98 Room Air 10/22/21 22:36 36.8 C 107 H 22 172/86 H 95 Room Air Laboratory Results 10/23/21 04:02 10/23/21 08:53 PG Care Time/CCT Total # of Minutes Spent Total Time Spent with Patient: Total time spent is greater than 50% in coordination of care (as documented) at patient's floor/unit and/or counseling patient: Coding Level of Care Code 44536 Initial Inpt Care Lvl 3 Diagnoses Respiratory alkalosis E87.3 AMS (altered mental status) R41.82 Hyponatremia E87.1
[2021-10-23] MEDS: ALBUT/IPRATROP 3MG/0.5MG NEB 3 ML VIAL NEB SCH ×2 (11:11→13:28)
[2021-10-23] MEDS ORDERED: PIPERACILLIN/TAZOBACTAM 4.5 GM in DEXTROSE 5% 100 ML IV SCH (12:00)
[2021-10-23 12:14] LABS: BUN Creatinine Ratio 13.3 (10-20); Calcium 8.9 mg/dl (8.5-10.1); Creatinine Clr Calc Pharmacy 66.9 ml/min; Est GFR (African American) 95.7 ml/min; Est GFR (Non-African American) 82.5 ml/min; Potassium 3.4 mmol/L (3.5-5.1)
[2021-10-23] MEDS ORDERED: LABETALOL HCL IV 5 MG/ML 20ML IV PRN (16:19)
[2021-10-23] MEDS ORDERED: hydrALAZINE HCL 20 MG/ML VIAL IV PRN (16:21)
--- NOTE | 2021-10-23 16:45 | Communication Note ---
Date of Service: October 23, 2021 86-year-old lady with PMH of hypertension, poor vision and hard of hearing who presented to the ED 10/22 for evaluation of confusion and was being managed for hyponatremia, acute hypoxemic respiratory failure likely secondary to aspiration pneumonia, respiratory alkalosis and closed head injury status post mechanical fall on 10/21. Overnight patient was agitated and given doses of Zyprexa x 2 of 2.5 mg each. Early in the morning, patient underwent transient unresponsiveness and had bilious emesis, concern for aspiration, silke cagle called and was started on Zosyn. Patient was saturating good on room air prior to code purple was called when patient was found obtunded, needed 15 L oxygen via nonrebreather which was able to be weaned down to 8 L oxygen via nonrebreather by the time of my terrazzo tile setter assessment due to her acute status. On bedside exam terrazzo tile setter, patient was obtunded, on 8 L oxygen via Oxy Mask, vocal response on the sternal rub, BP 170s/70s. ABG from terrazzo tile setter reviewed with respiratory alkalosis. Repeat CT head in the morning was negative for any acute findings. Troponin was negative, EKG done and reviewed with no acute ST or T changes. Patient maintaining normal heart rate with occasional episodes of bradycardia. CBC normal in the morning. Hyponatremic on lab review, potassium was normal in the morning, magnesium replaced, and ammonia level was normal. Later in the morning, I was paged again for concerns of ongoing aspiration when she had crackles diffuse and bilateral but maintaining saturation >90% on 8L Oxy mask, on the background of obtundation discussed the case with media services coordinator but patient soon improved on respiration, was clear to auscultation on repeat exam. Anime Designer evaluated the patient. Chest x-ray without acute infiltrates. Hence plan to continue to monitor with close watch on her respiratory status. During the day, I was paged again for concerns of aspiration when oral suction came out as bile. Immediately went in the room to evaluate the patient, patient's sister August was in the room. Patient was saturating in 70s on 2 L oxygen, increased oxygen to 15 L via nonrebreather, it took 2-3 minutes for saturation to go up to above 90%, meanwhile I rediscussed the case again with media services coordinator for possible need of intubation at the same time I was updating the patient's sister at bedside. Her initial thought was to not go ahead with intubation or CPR if needed but she soon confirmed with her family over the phone and final decision was reached for DNR/DNI. Since now patient was saturating well on 15 L nonrebreather for a while, I went to further chart review on computer and I got paged again that the patient's heart rate went down with weak pulses and stopped breathing. On my immediate bedside exam, pupils were mid dilated, patient was not breathing, no heart sounds or pulses noted, no pupillary reflex. pronounced. Time of 4:28 PM on 10/23/2021. Cause of : Likely acute hypoxemic respiratory failure secondary to aspiration on the background of closed head injury, hyponatremia, altered mentation and hypertension. Patient's sister at bedside updated and answered her questions.
--- NOTE | 2021-10-23 17:20 | Death Pronouncement Note ---
Date of Service October 23, 2021 Pronouncement Note Admission Date October 22, 2021 Date and Time of Date of : 10/23/21 Time of : 16:28 Contributing Factors Cause of : Likely acute hypoxemic respiratory failure secondary to aspiration on the background of closed head injury, hyponatremia, altered mentation and hypertension. Summary see discharge summary Additional Data Pronouncement Performed By: Attending Physician Family: at bedside Additional persons at bedside: other (RN) Attending physician: Shira Elias MD Was code activated?: No
--- NOTE | 2021-10-23 17:36 | Discharge Summary ---
Date of Service October 23, 2021 Admission HPI Per Admitting Provider 86-year-old female with PMH HTN, other problems below who presents to the ED for evaluation of confusion. Patient seen in the ED yesterday after having a mechanical fall. Head CT and cervical spine CT negative for acute findings. Patient was discharged home. Patient's sister is at the bedside who provides history. Sister states that patient spent the night at her house last night. This morning, patient was increasingly confused and complaining of head and neck pain. Patient was then brought back to the ED for further evaluation. Patient has not had anything to eat since yesterday at lunchtime. This morning, she took a sip of water with her lisinopril and had vomiting after. Additional history and review of systems is unobtainable from the patient due to current altered mental status. In the ED, repeat head CT is negative for acute findings. Labs show Na+ 126. UA is abnormal but does not strongly suggest UTI. Patient received IV Haldol and IV lorazepam in the ED. Admission Exam Per Admitting Provider Constitutional: WD/WN, vitals as above Eyes: PERRL, conjunctivae normal, anicteric sclerae ENMT: external ear and nose normal, oropharynx normal Respiratory: normal respiratory effort, lungs clear to auscultation Cardiovascular: Rate/Rhythm: regular rate and regular rhythm Vessels: normal peripheral pulses Extremities: no edema Gastrointestinal (Abdomen): normal bowel sounds, soft, nontender, no hepatosplenomegaly Musculoskeletal: no cyanosis or clubbing, extremities motor strength 5/5 Head/Neck/Chest: + head abnormal to inspection (Frontal scalp swelling and mild ecchymosis present) Skin: no rashes, warm and dry Neurologic: PERRL, EOMI, accommodation nl, no face palsy, no dysarthria moves all extremities; no focal motor deficits Psychiatric: Orientation: alert and oriented to person; + not oriented to place and + not oriented to time Principal Diagnosis Acute hypoxemic respiratory failure likely secondary to aspiration Altered mental status, closed head injury, hyponatremia, hypertension Discharge Exam Pupils fixed and mid dilated, no pulse, no heart sounds. No respiratory effort, no breathing sounds. Oral mucosa dry. No pupillary reflex. Not responsive to sternal rub. Discharge Data Allergies Allergy/AdvReac Type Severity Reaction Status Date / Time No Known Allergies Allergy Verified 10/21/21 21:06 Consultations 10/22/21 13:26 ED Decision to Admit Stat 10/22/21 21:03 Consult Nephrology Routine 10/23/21 10:12 Consult Manual Lathe Operator Routine Ordered Studies 10/22/21 12:06 CT head/brain wo con Stat 10/22/21 14:12 CT cervical spine wo con Routine CT lumbar spine wo con Routine CT thoracic spine wo con Routine 10/23/21 06:59 CT head/brain wo con Urgent Hospital Course (1) AMS (altered mental status): Plan 86-year-old lady with PMH of hypertension, poor vision and hard of hearing who was admitted 10/22 for evaluation of confusion and was being managed for hyponatremia, acute hypoxemic respiratory failure likely secondary to aspiration pneumonia, respiratory alkalosis and closed head injury status post mechanical fall on 10/21. At presentation patient was confused, overnight she became agitated and received Zyprexa, she also vomited and there was concern of aspiration android architect when code purple was called and she was started on oxygen and Zosyn. Repeat CT scan of head and chest x-ray with no new acute findings. For detailed description see supplemental communication note. With patient's status worsening, patient's Sister Lu was updated at bedside who after calling her family over the phone reached with decision to not intubate and DNR/DNI. Manual Lathe Operator was at bedside along w/ RN. Soon after code status change, patient ceased breathing, heart rate went down and . Time of 4:28 PM on 10/23/2021. Cause of : Likely acute hypoxemic respiratory failure secondary to aspiration on the background of closed head injury, hyponatremia, altered mentation and hypertension. Patient's sister at bedside updated and answered her questions. Total Time Total Time Spent Total Time Spent (In Minutes): 60 Discharge Plan Discharge Items Patient Disposition: Other Date/Time: 10/23/21 16:28
--- NOTE | 2021-10-23 17:40 | Communication Note ---
Date of Service: October 23, 2021 I was consulted on this patient who unfortunately before I could evaluate her. Sodium steady in mid 120s throughout this brief admission.
== END 2021-10-23 20:11 | disposition expired | DRG 88 ==
LOC: ED 11:58 → 2S 13:32 → SUATTDRO 13:32 → 2S 16:49